=== PATIENT | female | born 1960 | race Caucasian/White ===

== ENCOUNTER 2017-04-03 20:13 | Emergency (ER) | payer MEDICAID ==
[2017-04-03] MEDS ORDERED: predniSONE 10 MG Tab ONE (20:30)
--- NOTE | 2017-04-03 20:48 | EDM.PDOC ---
ED HPI GENERAL MEDICAL PROBLEM - General Chief Complaint: General Stated Complaint: SWOLLEN RIGHT ANKLE Time Seen by Provider: 04/03/17 20:20 Source of Information: Reports: Patient History Limitations: Reports: No Limitations - History of Present Illness INITIAL COMMENTS - FREE TEXT/NARRATIVE: Pt claims that she is having swelling and pain in her right ankle for about 1 wk now. She did see, Sherri odom and was started on quick tapering course of prednisone, as she does have Rheumatoid arthritis. Pt claims that pain has got worse over the weekend,and she is on prednisone 10mg, which is not controlling her symptoms. rates pain around 6-7/10. Vicodin does not help with pain. Naprosyn helps better. Pt used to be on methotrexate 70mg once weekly. She quit taking 14 months ago, as she lost her health insurance. Pt torres been taking prednisone for flare since then. Pt requesting refill on her prednisone and also to wants to get back on her methotrexate. Duration: Week(s): (1 wk) Location: Reports: Other (right ankle) Quality: Reports: Ache Severity: Moderate Improves with: Reports: None Worsens with: Reports: None Associated Symptoms: Denies: Confusion, Chest Pain, Fever/Chills, Headaches, Loss of Appetite, Shortness of Breath, Syncope Right Ankle Pain Score (Numeric/FACES): 8 - Related Data Allergies Allergy/AdvReac Type Severity Reaction Status Date / Time Sulfa (Sulfonamide Allergy Rash Verified 04/03/17 20:27 Antibiotics) Home Meds: Home Meds Hydrocodone/Acetaminophen [Hydrocodone-Acetaminophen 5-325] 1 tab PO Q6HR PRN [History] Naproxen [Naprosyn] 500 mg PO BID 04/03/17 [History] Prednisone [IJD: Prednisone] 10 mg PO ASDIRECTED 04/03/17 [History] ED ROS GENERAL - Review of Systems Review Of Systems: See Below Constitutional: Denies: Fever, Chills HEENT: Denies: Rhinitis, Sinus Problem Respiratory: Denies: Cough, Sputum Cardiovascular: Denies: Chest Pain, Lightheadedness GI/Abdominal: Denies: Abdominal Pain, Nausea, Vomiting : Denies: Dysuria, Flank Pain Musculoskeletal: Reports: Joint Pain, Joint Swelling. Denies: Muscle Pain, Muscle Stiffness Skin: Denies: Bruising, Pruritis, Rash ED EXAM, GENERAL - Physical Exam Exam: See Below Exam Limited By: No Limitations General Appearance: Alert, WD/WN, Mild Distress Eye Exam: Bilateral Eye: EOMI, PERRL Ears: Normal External Exam, Normal Canal, Hearing Grossly Normal, Normal TMs Ear Exam: Bilateral Ear: Auricle Normal, Canal Normal, TM normal Nose: Normal Inspection, Normal Mucosa, No Blood Throat/Mouth: Normal Inspection, Normal Lips, Normal Teeth, Normal Gums, Normal Oropharynx, Normal Voice, No Airway Compromise Head: Atraumatic, Normocephalic Neck: Normal Inspection, Supple, Non-Tender, Full Range of Motion Respiratory/Chest: No Respiratory Distress, Lungs Clear, Normal Breath Sounds, No Accessory Muscle Use, Chest Non-Tender Cardiovascular: Normal Peripheral Pulses, Regular Rate, Rhythm, No Edema, No Gallop, No JVD, No Murmur, No Rub Extremities: Other (Right ankle:There is minimal swelling around the ankle. There is no erythema. PAinful ROM. Tender all around the joint, minimal warmth.) Course - Vital Signs Text/Narrative:: Pt has a flare up of the rheumatoid arthritis, in her right ankle. Presently not controlled by 10mg of prednisone. I have increased her prednisone to 20mg daily. Also advised to wear compression ankle stocking. Avoid excessive movement of the ankle. Also as patient wants to start methotrexate. I have reassured that i will call methotrexate 70mg weekly dose . Also folic acid 1mg daily. But she does need to get LFT and CBC , which she claims will get done by her primary care provider.I have advised her to take naprosyn 500mg twice daily [place] with in 1 wk. 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 Continue with provided Prednisone, 2 tablets by mouth daily. Be sure to contact clinic tomorrow for refill of Prednisone. Continue taking previously prescribed Naproxen as directed. Keep compression wrap in place, rest, elevate and apply ice intermittently every 2-3 hours while awake to help decrease swelling. Keep already schedule appointment with regular provider for further prescription and work up. Call with any questions. - Problem List & Annotations (1) Rheumatoid arthritis flare SNOMED Code(s): 443964564 Code(s): M06.9 - RHEUMATOID ARTHRITIS, UNSPECIFIED Status: Acute - Problem List Review Problem List Initiated/Reviewed/Updated: Yes - Assessment/Plan Assessment:: Rheumatoid arthritis flare Plan: Pt has a flare up of the rheumatoid arthritis, in her right ankle. Presently not controlled by 10mg of prednisone. I have increased her prednisone to 20mg daily. Also advised to wear compression ankle stocking. Avoid excessive movement of the ankle. Also as patient wants to start methotrexate. I have reassured that i will call methotrexate 70mg weekly dose . Also folic acid 1mg daily. But she does need to get LFT and CBC , which she claims will get done by her primary care provider.I have advised her to take naprosyn 500mg twice daily [place] with in 1 wk.
[2017-04-03 23:59] VITALS: BP 156/71
== END 2017-04-03 20:39 | disposition home or self-care (01) ==
LOC: LB.ED 20:13
DX: M06.9 Rheumatoid arthritis, unspecified (principal); Z88.2 Allergy status to sulfonamides; Z79.899 Other long term (current) drug therapy
CPT/HCPCS: 99283; A9270

== ENCOUNTER 2021-03-18 17:29 | Emergency (ER) | payer SELFPAY ==
[2021-03-18 19:20] VITALS: BP 178/98; PULSE 74
--- NOTE | 2021-03-19 01:36 | ER ---
HPI: A 60-year-old lady who comes in with another family member with complaints of cutting the base of the right thumb. She was using a tool. She calls a mandolin to cut vegetables and food that has a slicing action and her hand got too close to the blade and she sliced off a piece of skin at the base of the right thumb. She states it has been bleeding fairly freely. They have been trying to hold pressure to it, but cannot stop the bleeding. The patient denies any loss of movement of the injured finger and she is not on any blood thinners. OBJECTIVE: GENERAL APPEARANCE: The patient is awake and alert, pleasant and talkative. VITAL SIGNS: Reviewed. Blood pressure 177/112. She is afebrile. DERM: Examining the right thumb reveals a piece of skin missing that is no deeper than the epidermis on the base of the thumb on the side opposite of the index finger. It would be an area about 1 cm x 1.5 cm in size. With the dressing removed, there is seepage of blood that is constant and the patient already soaked a few 4 x 4 gauze dressings. DIAGNOSIS: Avulsion type injury to the base of the right thumb. TREATMENT PLAN: I used a Surgicel pad and we have covered this with folded up gauze and used Coban for a pressure dressing. The patient was monitored for about 30 minutes. There was no sign of any seepage of blood or bleeding. She will be discharged home. She is to keep her injured extremity elevated and not in a dependent position. She is to recheck her blood pressure when she gets home and has a chance to relax. She states her blood pressure has been good recently. She is to monitor for infection. The dressing should be changed roughly in 24 hours. They can leave the Surgicel in place for 2 or 3 days if it does not freely come loose when changing the dressing and followup is p.r.n. She is to keep the area clean and dry and use [id number] medications such as Tylenol alternating with ibuprofen for pain control as needed. The patient has no further questions and agrees with the treatment plan. CRS/MODL /[id number]
== END 2021-03-18 18:30 | disposition home or self-care (01) ==
LOC: LB.ED 17:29
DX: S61.101A Unspecified open wound of right thumb with damage to nail, initial encounter (principal); W26.8XXA Contact with other sharp object(s), not elsewhere classified, initial encounter
CPT/HCPCS: 99283

== ENCOUNTER 2021-10-26 13:51 | Emergency (ER) | payer MEDICAID ==
--- NOTE | 2021-10-26 14:03 | EDM.PDOC ---
ED HPI GENERAL MEDICAL PROBLEM - General Chief Complaint: Abdominal Pain Stated Complaint: toothache Time Seen by Provider: 10/26/21 13:51 Source of Information: Reports: Patient ([id number]) History Limitations: Reports: No Limitations - History of Present Illness INITIAL COMMENTS - FREE TEXT/NARRATIVE: This patient presents to the emergency department for evaluation of dental pain. She states she has had dental pain for quite some time related to a tooth in the back of her mouth and does have a dental appointment scheduled for tomorrow. She states she can no longer wait Because the pain is gotten too bad. She states she has not had any swelling until today when her face became quite puffy. She states she is not able to open her mouth, eat solids but is able to drink fluids. She denies any vomiting or diarrhea. She denies any fever. - Related Data Allergies Allergy/AdvReac Type Severity Reaction Status Date / Time Sulfa (Sulfonamide Allergy Rash Verified 03/18/21 18:06 Antibiotics) Home Meds: Home Meds Hydrocodone/Acetaminophen [Hydrocodone-Acetaminophen 5-325] 1 tab PO Q6HR PRN 03/09/14 [History] Prednisone [IJD: Prednisone] 10 mg PO ASDIRECTED 04/03/17 [History] Cyclobenzaprine HCl 10 mg PO TID 03/18/21 [History] Meloxicam [Mobic] 7.5 mg PO DAILY 03/18/21 [History] methocarbamoL [Methocarbamol] 500 mg PO TID 03/18/21 [History] traMADol HCl [Tramadol HCl] 50 mg PO Q6H PRN 03/18/21 [History] Penicillin V Potassium 500 mg PO Q8HR #30 tab 10/26/21 [Rx] Past Medical History HEENT History: Reports: Impaired Vision Gastrointestinal History: Reports: GERD 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 ED EXAM, ENT - Physical Exam Exam: See Below Exam Limited By: No Limitations General Appearance: Alert, Moderate Distress Eye Exam: Bilateral Eye: PERRL Ears: Normal External Exam Nose: Normal Inspection Mouth/Throat: Other (Patient refusing to open mouth for thorough evaluation. She indicates pain is in the lower jaw, "back tooth.") Head: Facial Swelling (Moderate right cheek swelling when compared to left cheek. Tenderness with palpation of right cheek), Facial Tenderness. No: Facial Ecchymosis Respiratory/Chest: No Respiratory Distress, No Accessory Muscle Use Neurological: Alert, Oriented Skin: Warm, Dry Course - Re-Assessments/Exams Free Text/Narrative Re-Assessment/Exam: This patient presents for evaluation of dental pain. History clinical findings are most consistent with facial swelling and poor dentition. Tooth #17 seems to be the problem however the patient refused to open mouth. She does have some swelling of the gingiva with some redness and some facial swelling. There is no evidence of deep deep space infection of the neck or any sepsis-like syndrome. She has been using narcotic pain medication at home that she had this from a previous prescription. She was prescribed Pen-Vee K and instructed to use this 3 times a day. She was encouraged to be sure to keep her dental appointment which is scheduled for tomorrow. The patient was stable at the time of discharge. 10/26/21 14:09 Departure - Departure Time of Disposition: 14:05 Disposition: Home, Self-Care 01 Condition: Good Clinical Impression: Pain, dental - Discharge Information Prescriptions: Penicillin V Potassium 500 mg PO Q8HR #30 tab Instructions: Dental Pain, [id number] Referrals: Otis Hung MD [Primary Care Provider] - Forms: ED Department Discharge
[2021-10-26 14:06] VITALS: BP 174/113; PULSE 96
== END 2021-10-26 14:15 | disposition home or self-care (01) ==
LOC: LB.ED 13:51
DX: K08.89 Other specified disorders of teeth and supporting structures (principal); K21.9 Gastro-esophageal reflux disease without esophagitis; Z88.2 Allergy status to sulfonamides; Z79.899 Other long term (current) drug therapy
CPT/HCPCS: 99283

== ENCOUNTER 2021-10-30 17:34 | Emergency (ER) | payer MEDICAID ==
[2021-10-30 17:47] VITALS: BP 142/100; PULSE 137
[2021-10-30] MEDS ORDERED: Ondansetron 4 MG Tab.DIS PO PRN (17:51)
--- NOTE | 2021-10-30 17:59 | EDM.PDOC ---
ED HPI GENERAL MEDICAL PROBLEM - General Chief Complaint: General Stated Complaint: weakness Time Seen by Provider: 10/30/21 17:45 Source of Information: Reports: Patient History Limitations: Reports: No Limitations - History of Present Illness INITIAL COMMENTS - FREE TEXT/NARRATIVE: This patient presents to the emergency department for evaluation of a dental abscess. She was seen 4 days ago for the same and started on penicillin. She has a supply of narcotics at home that she has been using from another prescription. She was not given a prescription here. She stated at that time that she had a dental appointment the next day. I made it very clear to her that she needed to have the tooth removed in order to have this problem resolved once and for all. Two days ago, on 122 she phoned the ER and I spoke to her by phone. She did not go to her dental appointment and was calling looking for a different antibiotic and more pain medication. This was denied. She was encouraged to make a dental appointment and keep it. She presented to the clinic yesterday for the same concern and was started on "a different antibiotic" and given oxycodone. She states she was also given a shot of penicillin. Today she presents because she is having vomiting and states that she has had a fever at home; she comes complaining of nausea. She continues to complain of dental pain and facial swelling. She denies chest pain. She denies diarrhea. - Related Data Allergies Allergy/AdvReac Type Severity Reaction Status Date / Time Sulfa (Sulfonamide Allergy Rash Verified 10/30/21 17:35 Antibiotics) Home Meds: Home Meds Hydrocodone/Acetaminophen [Hydrocodone-Acetaminophen 5-325] 1 tab PO Q6HR PRN 03/09/14 [History] Prednisone [IJD: Prednisone] 10 mg PO ASDIRECTED 04/03/17 [History] Cyclobenzaprine HCl 10 mg PO TID 03/18/21 [History] Meloxicam [Mobic] 7.5 mg PO DAILY 03/18/21 [History] methocarbamoL [Methocarbamol] 500 mg PO TID 03/18/21 [History] traMADol HCl [Tramadol HCl] 50 mg PO Q6H PRN 03/18/21 [History] Penicillin V Potassium 500 mg PO Q8HR #30 tab 10/26/21 [Rx] Past Medical History - Past Health History Medical/Surgical History: Denies Medical/Surgical History HEENT History: Reports: Impaired Vision Gastrointestinal History: Reports: GERD 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 ED EXAM, GENERAL - Physical Exam Exam: See Below Exam Limited By: No Limitations Eye Exam: Bilateral Eye: EOMI, Normal Inspection, PERRL Ears: Normal External Exam, Normal Canal, Normal TMs Nose: Normal Inspection Throat/Mouth: Normal Inspection, Normal Lips, Normal Teeth, Normal Oropharynx, No Airway Compromise Head: Atraumatic, Normocephalic Neck: Normal Inspection, Full Range of Motion Respiratory/Chest: No Respiratory Distress, Lungs Clear, Normal Breath Sounds, No Accessory Muscle Use Cardiovascular: Regular Rate, Rhythm GI/Abdominal: Normal Bowel Sounds, Soft, Non-Tender, No Distention Neurological: Alert, Oriented Psychiatric: Normal Affect Skin Exam: Warm, Dry, Intact Course - Vital Signs Last Recorded V/S: Last Vital Signs Temp 36.4 C 10/30/21 17:47 Pulse 137 H 10/30/21 17:47 Resp 20 10/30/21 17:47 BP 142/100 H 10/30/21 17:45 Pulse Ox 97 10/30/21 17:47 - Orders/Labs/Meds Orders: Active Orders 24 hr Category Date Time Status Ondansetron [Zofran ODT] Med 10/30/21 17:51 Active 4 mg PO ONETIME PRN Medication Orders Ondansetron HCl (Ondansetron 4 Mg Tab.Dis) 4 mg PO ONETIME PRN PRN Reason: Vomiting Meds: Medications Generic Name Dose Route Start Last Admin Trade Name Freq PRN Reason Stop Dose Admin Ondansetron HCl 4 mg 10/30/21 17:51 Ondansetron 4 Mg Tab.Dis PO ONETIME PRN Vomiting - Re-Assessments/Exams Free Text/Narrative Re-Assessment/Exam: This patient presents to the emergency department for evaluation of dental pain and vomiting as detailed above. She has had multiple contacts with healthcare providers this week and has been on 2 different antibiotics. She is treating her pain with narcotics. Evaluation today shows a decrease in her facial swelling, greater ability to open her mouth. She is also complaining of nausea today. The patient was noncompliant with dental care and was reminded she will continue to have difficulties until the tooth is definitively treated. She has no evidence of deep space infection of the neck or any sepsis-like syndrome. Given the concern for apical abscess and dental infection she was encouraged to continue to take her antibiotic prescription as specified. She has been using her own narcotics for pain control and will not be given more. Patient was again, strongly advised to seek dental care as soon as possible. I discussed with her again that these medications did not represent definitive care for the tooth infection and definitive care by a dentist is required. I reminded her that I am not a dentist and that we do not provide dental care or refill pain medications here. The patient was stable at the time of discharge. 10/30/21 18:00 Departure - Departure Time of Disposition: 18:00 Disposition: Home, Self-Care 01 Condition: Fair Clinical Impression: Dental abscess - Discharge Information *PRESCRIPTION DRUG MONITORING PROGRAM REVIEWED*: Not Applicable *COPY OF PRESCRIPTION DRUG MONITORING REPORT IN PATIENT RICHA: Not Applicable Instructions: Dental Abscess, [id number] Additional Instructions: Make a dental appointment and keep it. You will not have a resolution of this pain the abscess until the problem is managed. Sepsis Event Note (ED) - Evaluation Sepsis Screening Result: No Definite Risk - Focused Exam Vital Signs: Vital Signs Temp Pulse Resp BP Pulse Ox 10/30/21 17:47 36.4 C 137 H 20 97 10/30/21 17:45 36.4 C 137 H 20 142/100 H 97 - My Orders Last 24 Hours: My Active Orders 10/30/21 17:51 Ondansetron [Zofran ODT] 4 mg PO ONETIME PRN - Assessment/Plan Last 24 Hours: My Active Orders 10/30/21 17:51 Ondansetron [Zofran ODT] 4 mg PO ONETIME PRN
== END 2021-10-30 18:08 | disposition home or self-care (01) ==
LOC: LB.ED 17:34
DX: K04.7 Periapical abscess without sinus (principal); Z88.2 Allergy status to sulfonamides
CPT/HCPCS: 99283; A9270

== ENCOUNTER 2024-06-24 11:13 | Emergency (ER) | payer SELFPAY ==
[2024-06-24] MEDS ORDERED: Ciprofloxacin 0.3% Ophth Soln 2.5 ML Bottle ONE (12:00)
[2024-06-24 13:18] VITALS: BP 172/83; PULSE 84
== END 2024-06-24 12:02 | disposition home or self-care (01) ==
LOC: LB.ED 11:13
DX: B30.9 Viral conjunctivitis, unspecified (principal); I10 Essential (primary) hypertension; K21.9 Gastro-esophageal reflux disease without esophagitis; Z88.2 Allergy status to sulfonamides; Z79.899 Other long term (current) drug therapy
CPT/HCPCS: 99283; A9270-GY

== ENCOUNTER 2024-06-29 09:18 | Emergency (ER) | payer MEDICAID, MEDICARE ==
[2024-06-29] MEDS: Tetracaine HCl/PF 0.5% 4 ML Bottle EYEBOTH ONE (10:15)
[2024-06-29] MEDS: Fluorescein 1 MG Ophth Strip EYERT ONE (10:15)
[2024-06-29 12:09] VITALS: BP 126/82; PULSE 71
== END 2024-06-29 11:05 | disposition home or self-care (01) ==
LOC: LB.ED 09:18
DX: H10.9 Unspecified conjunctivitis (principal); I10 Essential (primary) hypertension; K21.9 Gastro-esophageal reflux disease without esophagitis; Z86.16 Personal history of COVID-19; Z88.2 Allergy status to sulfonamides; Z79.899 Other long term (current) drug therapy
CPT/HCPCS: 99283

== ENCOUNTER 2024-07-07 09:36 | Emergency (ER) | payer MEDICARE ==
[2024-07-07] MEDS ORDERED: prednisoLONE Acetate 1% Ophth Susp 5 ML Bottle ONE (10:45)
[2024-07-07] MEDS ORDERED: Ciprofloxacin 0.3% Ophth Soln 2.5 ML Bottle ONE (10:45)
== END 2024-07-07 10:53 | disposition home or self-care (01) ==
LOC: LB.ED 09:36
DX: H10.9 Unspecified conjunctivitis (principal); I10 Essential (primary) hypertension; E66.9 Obesity, unspecified; Z88.2 Allergy status to sulfonamides; Z79.899 Other long term (current) drug therapy; Z86.16 Personal history of COVID-19
CPT/HCPCS: 99283; A9270-GY